=== PATIENT | female | born 1950 | race Caucasian/White ===

== ENCOUNTER 2018-09-02 19:47 | Inpatient (IN) | payer MEDICARE ==
[~2018-09-02] VITALS: Ht 165.1 cm; Wt 97.1 kg
[2018-09-02] MEDS ORDERED: SODIUM CHLORIDE 0.9% 500ML 500 ML IV ONE (20:33)
[2018-09-02 20:38] LABS: BASOPHILS % (AUTO) 0.5 % (0.0-5.0); EOSINOPHILS % (AUTO) 4.1 % (0.0-8.0); HEMATOCRIT 36.2 % (36-48); LYMPHOCYTES % (AUTO) 43.8 % (21.0-51.0); MEAN CORPUSCULAR HEMOGLOBIN 29.8 pg (27.0-33.0); MEAN CORPUSCULAR HGB CONC 33.9 g/dL (32.0-36.0); MEAN CORPUSCULAR VOLUME 87.9 fL (79-99); MONOCYTES % (AUTO) 9.9 % (3.0-13.0); NEUTROPHILS % (AUTO) 41.7 % (40.0-77.0); NUCLEATED RED BLOOD CELLS 0.1 % (0.0-0.19); PLATELET COUNT (AUTO) 212 K/uL (130-400); RED BLOOD CELL COUNT(AUTO) 4.12 MIL/uL (4.00-5.50); RED CELL DISTRIBUTION WIDTH 13.7 % (11.0-15.5); WHITE BLOOD COUNT (AUTO) 9.9 K/uL (4.8-10.8)
[2018-09-02 20:52] LABS: INR 1.04 (0.85-1.15); PROTHROMBIN TIME 10.9 SEC (9.6-11.6)
[2018-09-02 20:55] LABS: CREATININE 1.2 mg/dL (0.5-1.5); POTASSIUM 4.3 mmol/L (3.5-5.1)
[2018-09-02 20:59] LABS: ALBUMIN 3.4 g/dL (3.5-5.0); BILIRUBIN,DIRECT 0.1 mg/dL (0.0-0.3); BILIRUBIN,TOTAL 0.4 mg/dL (0.2-1.0); TOTAL PROTEIN, SERUM 6.5 g/dL (6.0-8.3)
[2018-09-02 21:11] LABS: B-TYPE NATRIURETIC PEPTIDE 642 pg/mL (0-100)
[2018-09-02 22:27] LABS: APPEARANCE,URINE Clear (CLEAR); BILIRUBIN,URINE Negative (NEGATIVE); COLOR,URINE Yellow (YELLOW); GLUCOSE, URINE (UA) Negative (NEGATIVE); KETONES,URINE Trace mg/dL (NEGATIVE); LEUKOCYTE ESTERASE ,URINE Negative (NEGATIVE); NITRATE,URINE Negative (NEGATIVE); OCCULT BLOOD,URINE Negative (NEGATIVE); PROTEIN,URINE Trace (NEGATIVE)
[2018-09-02] MEDS ORDERED: HYDROCODONE/ACETAMINOPHEN 5/325 MG TAB ONE (22:45)
[2018-09-02] MEDS ORDERED: LIDOCAINE HCL-MPF 1% 2ML VIAL IVP PRN (23:45)
[2018-09-02] MEDS ORDERED: POTASSIUM CHLORIDE 20 MEQ ERTAB PO PRN (23:45)
[2018-09-02] MEDS ORDERED: POTASSIUM CHLORIDE 10% ELIXIR 20 MEQ/15 ML UDCUP PO PRN (23:45)
[2018-09-02] MEDS ORDERED: POTASSIUM CHLORIDE 20MEQ/100ML 100 ML IV PRN (23:45)
[2018-09-02] MEDS ORDERED: MAGNESIUM 2GM PREMIX 50ML 50 ML IV PRN (23:45)
[2018-09-03] MEDS ORDERED: SODIUM CHLORIDE 0.9% 1000ML 1,000 ML IV SCH (00:44)
[2018-09-03] MEDS ORDERED: ACETAMINOPHEN 325 MG TAB PO PRN (00:45)
[2018-09-03] MEDS ORDERED: ONDANSETRON HCL 4 MG/2 ML VIAL IV PRN (00:45)
[2018-09-03] MEDS ORDERED: MORPHINE SULFATE 2 MG/ML 1ML SYG IVP ONE (00:45)
[2018-09-03] MEDS ORDERED: MORPHINE SULFATE 4 MG/1ML SYG IV PRN (00:45)
[2018-09-03] MEDS ORDERED: PANTOPRAZOLE 40 MG/VIAL IVP SCH (00:45)
[2018-09-03] MEDS ORDERED: MORPHINE SULFATE 2 MG/ML 1ML SYG IV PRN (00:45)
[2018-09-03] MEDS: MAG HYDROX/AL HYDROX/SIMETH ES 30 ML SUSP UDCUP PO SCH (01:00)
[2018-09-03] MEDS ORDERED: TRAZODONE HCL 50 MG TAB ONE (01:05)
[2018-09-03] MEDS ORDERED: MORPHINE SULFATE 2 MG/ML 1ML SYG ONE (01:06)
[2018-09-03] MEDS ORDERED: SODIUM CHLORIDE 0.9% 1000ML 1,000 ML IV ONE (01:39)
[2018-09-03] MEDS ORDERED: ONDANSETRON HCL 4 MG/2 ML VIAL ONE (01:39)
[2018-09-03] MEDS ORDERED: MAGNESIUM 2GM PREMIX 50ML 50 ML IV ONE (01:40)
[2018-09-03 03:45] LABS: CREATINE KINASE, TOTAL 39 U/L (21-232); MYOGLOBIN 38 ng/mL (10-92); TROPONIN I < 0.04 ng/mL (0.00-0.06)
[2018-09-03 08:30] VITALS: BP 154/80
[2018-09-03] MEDS ORDERED: PRAV80TA PO (08:46)
[2018-09-03] MEDS ORDERED: MULT-1192 PO (08:46)
[2018-09-03] MEDS ORDERED: ESCI10TA PO (08:46)
[2018-09-03] MEDS ORDERED: CARV25TA77 PO (08:46)
[2018-09-03] MEDS ORDERED: VALS80TA2 PO (08:46)
[2018-09-03] MEDS ORDERED: GABA100C PO (08:46)
[2018-09-03] MEDS ORDERED: PANT40TA25 PO (08:46)
[2018-09-03] MEDS ORDERED: ASPI-555 PO (08:46)
[2018-09-03] MEDS ORDERED: POTA99TA21 PO (08:46)
[2018-09-03] MEDS ORDERED: MELO15TA12 PO (08:46)
[2018-09-03] MEDS ORDERED: TRAZ-185 PO (08:46)
[2018-09-03] MEDS ORDERED: GLUC100019 PO (08:46)
[2018-09-03 09:36] LABS: BASOPHILS % (AUTO) 0.9 % (0.0-5.0); EOSINOPHILS % (AUTO) 1.1 % (0.0-8.0); MEAN CORPUSCULAR HEMOGLOBIN 30.2 pg (27.0-33.0); MEAN CORPUSCULAR VOLUME 88.7 fL (79-99); MONOCYTES % (AUTO) 7.8 % (3.0-13.0); NEUTROPHILS % (AUTO) 69.2 % (40.0-77.0); PLATELET COUNT (AUTO) 201 K/uL (130-400); RED BLOOD CELL COUNT(AUTO) 4.06 MIL/uL (4.00-5.50); RED CELL DISTRIBUTION WIDTH 13.8 % (11.0-15.5); WHITE BLOOD COUNT (AUTO) 9.5 K/uL (4.8-10.8)
[2018-09-03] MEDS: PANTOPRAZOLE SODIUM 40 MG TABLET.DR PO SCH (09:50)
[2018-09-03] MEDS: ENOXAPARIN SODIUM 40 MG/0.4 ML SYRINGE SQ SCH (09:52)
[2018-09-03 09:58] LABS: ALANINE AMINOTRANSFERASE 34 U/L (12-78); ALBUMIN 3.3 g/dL (3.5-5.0); ASPARTATE AMINOTRANSFERASE 27 U/L (10-37); BILIRUBIN,TOTAL 0.5 mg/dL (0.2-1.0); CARBON DIOXIDE 27 mmol/L (21-32); CHLORIDE 105 mmol/L (101-111); CHOLESTEROL 83 mg/dL (<200); CREATINE KINASE, TOTAL 49 U/L (21-232); CREATININE 1.1 mg/dL (0.5-1.5); GLOMERULAR FILTR. RATE CALC 52 mL/min (>60); GLUCOSE,RANDOM 117 mg/dL (70-105); HDL CHOLESTEROL 36 mg/dL (35-85); LDL DIRECT 35 mg/dL (0-99); MYOGLOBIN 37 ng/mL (10-92); POTASSIUM 4.4 mmol/L (3.5-5.1); SODIUM SERUM 140 mmol/L (136-145); THYROID STIMULATING HORMONE 2.31 uIU/mL (0.36-3.74); TOTAL PROTEIN, SERUM 6.4 g/dL (6.0-8.3); TRIGLYCERIDES 112 mg/dL (30-200); TROPONIN I < 0.04 ng/mL (0.00-0.06); UREA NITROGEN, BLOOD 24 mg/dL (7-18)
[2018-09-03 11:25] VITALS: BP 122/47
[2018-09-03] MEDS: HYDROCODONE/ACETAMINOPHEN 5/325 MG TAB PO PRN ×2 (11:40→20:44)
[2018-09-03] MEDS ORDERED: GABAPENTIN 100 MG CAPSULE PO PRN (14:00)
[2018-09-03 16:18] VITALS: BP 120/63
[2018-09-03 16:46] VITALS: BP_SYST 136; BP_DIAS 58; BP_DIAS 67
[2018-09-03 19:29] VITALS: BP 134/80
[2018-09-03] MEDS: CARVEDILOL 12.5 MG TABLET PO SCH (20:43)
[2018-09-03] MEDS ORDERED: ATORVASTATIN CALCIUM 20 MG TABLET PO SCH (21:00)
[2018-09-03] MEDS ORDERED: TRAZODONE HCL 50 MG TAB PO SCH (21:00)
[2018-09-03] MEDS ORDERED: CARVEDILOL 25 MG TABLET PO SCH (21:00)
[2018-09-03 23:21] VITALS: BP 102/51
[2018-09-04] MEDS: MAG HYDROX/AL HYDROX/SIMETH ES 30 ML SUSP UDCUP PO SCH (01:00)
[2018-09-04 03:01] VITALS: BP 110/67
[2018-09-04 04:03] LABS: BASOPHILS % (AUTO) 0.5 % (0.0-5.0); EOSINOPHILS % (AUTO) 3.4 % (0.0-8.0); HEMATOCRIT 34.1 % (36-48); LYMPHOCYTES % (AUTO) 44.5 % (21.0-51.0); MEAN CORPUSCULAR HEMOGLOBIN 30.4 pg (27.0-33.0); MEAN CORPUSCULAR HGB CONC 34.3 g/dL (32.0-36.0); MEAN CORPUSCULAR VOLUME 88.6 fL (79-99); MONOCYTES % (AUTO) 8.9 % (3.0-13.0); NEUTROPHILS % (AUTO) 42.7 % (40.0-77.0); NUCLEATED RED BLOOD CELLS 0.1 % (0.0-0.19); PLATELET COUNT (AUTO) 179 K/uL (130-400); RED BLOOD CELL COUNT(AUTO) 3.85 MIL/uL (4.00-5.50); RED CELL DISTRIBUTION WIDTH 13.9 % (11.0-15.5); WHITE BLOOD COUNT (AUTO) 5.9 K/uL (4.8-10.8)
[2018-09-04 04:29] LABS: ALBUMIN 3.2 g/dL (3.5-5.0); BILIRUBIN,TOTAL 0.5 mg/dL (0.2-1.0); CREATININE 1.1 mg/dL (0.5-1.5); POTASSIUM 4.1 mmol/L (3.5-5.1); THYROID STIMULATING HORMONE 2.25 uIU/mL (0.36-3.74); TOTAL PROTEIN, SERUM 6.1 g/dL (6.0-8.3)
[2018-09-04] MEDS: PANTOPRAZOLE SODIUM 40 MG TABLET.DR PO SCH (06:25)
[2018-09-04 07:44] VITALS: BP 131/65
[2018-09-04] MEDS: CARVEDILOL 12.5 MG TABLET PO SCH (07:54)
[2018-09-04] MEDS: ENOXAPARIN SODIUM 40 MG/0.4 ML SYRINGE SQ SCH (07:55)
[2018-09-04] MEDS ORDERED: MELOXICAM 7.5 MG TABLET PO SCH (09:00)
[2018-09-04] MEDS ORDERED: VALSARTAN 80 MG PO SCH (09:00)
[2018-09-04] MEDS ORDERED: GLUCOSAMINE SULFATE 1000 MG PO SCH (09:00)
[2018-09-04] MEDS ORDERED: MULTIVITAMIN TABLET PO SCH (09:00)
[2018-09-04] MEDS ORDERED: TRAZODONE HCL 50 MG TAB PO SCH (09:00)
[2018-09-04] MEDS ORDERED: CITALOPRAM 20 MG TABLET PO SCH (09:00)
[2018-09-04] MEDS ORDERED: ASPIRIN 81MG TAB.CHEW PO SCH (09:00)
[2018-09-04] MEDS ORDERED: LOSARTAN 50 MG TABLET PO SCH (09:00)
[2018-09-04] MEDS ORDERED: PANTOPRAZOLE SODIUM 40 MG TABLET.DR PO SCH (09:00)
[2018-09-04] MEDS ORDERED: POTASSIUM GLUCONATE 99 MG PO SCH (09:00)
[2018-09-04] MEDS ORDERED: CARV25TA77 PO (10:04)
[2018-09-04] MEDS ORDERED: LOSA50TA2 PO (10:04)
[2018-09-04 11:00] VITALS: BP 138/67
[2018-09-04] MEDS: REGADENOSON 0.4 MG/5 ML PF SYG IVP SCH ×2 (11:00→12:59)
[2018-09-04] MEDS: HYDROCODONE/ACETAMINOPHEN 5/325 MG TAB PO PRN (11:33)
[2018-09-04 16:20] VITALS: BP 135/45
== END 2018-09-04 18:20 | disposition home or self-care (01) | DRG 607 ==
LOC: EDH 19:47 → EDHIP 22:35 → 2CH 09-03 08:15 → 2DH 09-03 11:47
PROVIDERS: ADMIT Hospitalist; ATTEND Hospitalist
DX: R61 Generalized hyperhidrosis (principal); I45.2 Bifascicular block; E44.1 Mild protein-calorie malnutrition; I50.22 Chronic systolic (congestive) heart failure; R11.2 Nausea with vomiting, unspecified; R42 Dizziness and giddiness; G89.29 Other chronic pain; M54.5 Low back pain; E66.9 Obesity, unspecified; E11.9 Type 2 diabetes mellitus without complications; E78.5 Hyperlipidemia, unspecified; E78.00 Pure hypercholesterolemia, unspecified; I25.10 Atherosclerotic heart disease of native coronary artery without angina pectoris; K21.9 Gastro-esophageal reflux disease without esophagitis; F51.04 Psychophysiologic insomnia; I11.0 Hypertensive heart disease with heart failure; I25.5 Ischemic cardiomyopathy; K59.00 Constipation, unspecified; Z68.35 Body mass index [BMI] 35.0-35.9, adult; I45.10 Unspecified right bundle-branch block; I25.2 Old myocardial infarction; Z88.1 Allergy status to other antibiotic agents; Z88.0 Allergy status to penicillin; Z88.8 Allergy status to other drugs, medicaments and biological substances; Z98.49 Cataract extraction status, unspecified eye
CPT/HCPCS: 36415; 71045; 74150; 78452; 80048; 80053; 80061; 80076; 81003; 82150; 82550; 83605; 83690; 83735; 83874; 83880; 84443; 84484; 85025; 85610; 85730; 93005; 93017; 96374; A9500; C9113; J1650; J2405; J2785; J3475; J7030; J7040